=== PATIENT | female | born 1975 | race Hispanic/Latino ===

== ENCOUNTER 2018-01-28 23:02 | Emergency (ER) | payer SELFPAY ==
[2018-01-28] MEDS ORDERED: Metoclopramide HCl 10 MG/2 ML VIAL ONE (23:43)
[2018-01-28] MEDS ORDERED: diphenhydrAMINE 50 MG/ML VIAL ONE (23:43)
[2018-01-28] MEDS ORDERED: Ketorolac Tromethamine 30 MG/ML VIAL ONE (23:43)
[2018-01-28 23:52] LABS: #Basophils 0.1 thou/uL (0.0-0.2); #Eosinphils 0.2 thou/uL (0.0-0.7); #Lymphocytes 1.6 thou/uL (1.20-3.40); #Monocytes 0.5 thou/uL (0.11-0.59); %Basophils 1.1 % (0.0-1.0); %Eosinophils 3.9 % (0.0-10.0); %Lymphocytes 30.7 % (21.0-51.0); %Monocytes 8.6 % (0.0-10.0); %Neutrophils 55.7 % (42.0-75.0); Mean Corpuscular HGB CONC 34.8 g/dL (32.0-36.0); Mean Corpuscular Hemoglobin 30.2 pg (27.0-31.0); Mean Corpuscular Volume 86.8 fL (78.0-98.0); Mean Platelet Volume 6.2 fL (7.4-10.4); Platelet Count 290 thou/uL (130-400); RBC Distribution Width 11.5 % (11.5-14.5); Red Blood Cell (RBC) Count 3.99 mill/uL (4.20-5.40); White Blood Cell (WBC) Count 5.3 thou/uL (4.8-10.8)
[2018-01-29 00:14] LABS: ALT (SGPT) 11 U/L (8-55); Alkaline Phosphatase 61 U/L (40-150); Anion Gap 10 mmol/L (10-20); BUN (Urea Nitrogen) 11 mg/dL (7.0-18.7); Bilirubin, Total 0.4 mg/dL (0.2-1.2); Calc. Creatinine Clearance 0 mL/min (70-130); Carbon Dioxide 25 mmol/L (22-29); Chloride 106 mmol/L (98-107); Estimated GFR-MDRD 90; Globulin 3.1 g/dL (2.4-3.5); Glucose 95 mg/dL (70-105); Potassium 3.9 mmol/L (3.5-5.1); Protein, Total 7.1 g/dL (6.0-8.3); Sodium 137 mmol/L (136-145)
[2018-01-29 00:20] LABS: AST (SGOT) 10 U/L (5-34)
[2018-01-29] MEDS ORDERED: Lidocaine 1% w/Epinephrine 1:100K 20 ML VIAL ONE (00:26)
[2018-01-29] MEDS ORDERED: diphenhydrAMINE 25 MG CAP ONE (00:40)
[2018-01-29] MEDS ORDERED: Ibuprofen 800 MG TAB ONE (00:40)
[2018-01-29] MEDS ORDERED: Metoclopramide HCl 10 MG TAB ONE (00:55)
[2018-01-29] MEDS ORDERED: Cyclobenzaprine 10 MG TAB ONE (02:37)
--- NOTE | 2018-01-29 08:28 | CT ---
PRELIMINARY REPORT/[facility]/EMERGENTY AFTER-HOURS PROCEDURE CT Head Without Intravenous Contrast EXAM DATE/TIME: 01/29/2018 1:12 AM CLINICAL HISTORY: 42 years old, female; Pain; Headache; Headache not specified TECHNIQUE: Axial computed tomography images of the head/brain without intravenous contrast. COMPARISON: No relevant prior studies available. FINDINGS: Brain: Normal. No hemorrhage. No significant white matter disease. No edema. Ventricles: Normal. No ventriculomegaly. Bones/joints: Normal. No acute fracture. Sinuses: There is a mucous retention cyst or polyp in the right maxillary sinus. Mastoid air cells: Normal as visualized. No mastoid effusion. Soft tissues: Normal. IMPRESSION: No acute intracranial pathology. Thank you for allowing us to participate in the care of your patient. Dictated and Authenticated by: Perry Manriquez MD 01/29/2018 1:59 AM Central Time ([place] & [place]) FINAL REPORT CT BRAIN WITHOUT COTNRAST:I agree with the preliminary report given by Dr. Perry Keating of [facility]. POS: OFF
--- NOTE | 2018-01-30 19:55 | EKG ---
Test Reason : Blood Pressure : / mmHG Vent. Rate : 080 BPM Atrial Rate : 080 BPM P-R Int : 156 ms QRS Dur : 084 ms QT Int : 372 ms P-R-T Axes : 060 052 044 degrees QTc Int : 429 ms Normal sinus rhythm with sinus arrhythmia Normal ECG Confirmed by SRI THOMAS DO ([id number]), television news video editor [employer] ([id number]) on 01/30/2018 7:55:41 PM Referred By: Confirmed By:SRI THOMAS DO
== END 2018-01-29 02:42 | disposition home or self-care (01) ==
LOC: ERS 23:02
DX: R51 Headache (principal); M62.838 Other muscle spasm
CPT/HCPCS: 36415; 70450; 80053; 85025; 93005; J1200; J1885; J2001; J2765